=== PATIENT | male | born 1985 | race Hispanic/Latino ===

== ENCOUNTER 2017-03-14 14:02 | Emergency (ER) | payer OTHER ==
[2017-03-14 14:25] VITALS: BP 150/90; PULSE 58; RESP 18; TEMP 97.9; O2SAT 99
--- NOTE | 2017-03-14 14:43 | ED PDOC ---
Lower Extremity Pain/Injury Time Seen by Provider: 03/14/17 14:26 Chief Complaint (Nursing): Lower Extremity Problem/Injury Chief Complaint (Provider): Left foot injury History Per: Patient History/Exam Limitations: no limitations Onset/Duration Of Symptoms: Days (x1) Current Symptoms Are (Timing): Still Present Additional Complaint(s): Thanh is a 32 y/o male who presents to the ED for evaluation of a left foot injury, sustained earlier today. He states that while carrying an A/C unit , he lost his balance and dropped it onto his left great toe. Patient took Tramadol prior to arrival but this did not help the pain. PMD: None Past Medical History Reviewed: Historical Data, Nursing Documentation, Vital Signs Vital Signs: Last Vital Signs Temp 97.9 F 03/14/17 14:22 Pulse 58 L 03/14/17 14:22 Resp 18 03/14/17 14:22 BP 150/90 03/14/17 14:22 Pulse Ox 99 03/14/17 14:22 - Medical History PMH: No Chronic Diseases - Surgical History Other surgeries: Left knee surgery - Family History Family History: States: No Known Family Hx - Living Arrangements Living Arrangements: With Family - Social History Current smoker - smoking cessation education provided: No Alcohol: None Drugs: Denies - Home Medications Home Medications: Ambulatory Orders Medication Instructions Recorded Ibuprofen [Motrin] 600 mg PO Q6 PRN #15 tab 11/11/15 - Allergies Allergies/Adverse Reactions: Allergies Allergy/AdvReac Type Severity Reaction Status Date / Time No Known Allergies Allergy Verified 11/11/15 14:08 Wells Criteria for PE - Wells Criteria for Pulmonary Embolism Clinical Signs and Symptoms of DVT: No P.E is #1 Diagnosis, or Equally Likely: No Heart Rate >100: No Immobilization at least 3 days;Surgery previous 4 weeks: No Previous, objectively diagnosed PE or DVT: No Hemoptysis: No Malignancy w/treatment within 6 months, or palliative: No Total Score: 0 Review of Systems ROS Statement: Except As Marked, All Systems Reviewed And Found Negative Musculoskeletal: Positive for: Foot Pain (Left great toe injury) Neurological: Negative for: Weakness, Numbness Physical Exam - Reviewed Nursing Documentation Reviewed: Yes Vital Signs Reviewed: Yes - Physical Exam Appears: Positive for: Well, Non-toxic, No Acute Distress Head Exam: Positive for: ATRAUMATIC, NORMAL INSPECTION, NORMOCEPHALIC Skin: Positive for: Normal Color. Negative for: Rash Eye Exam: Positive for: Normal appearance Extremity: Positive for: Normal ROM (able to move all toes of left foot), Swelling (Subungual hematoma to the left great toe with swelling) Neurologic/Psych: Positive for: Alert, Oriented. Negative for: Motor/Sensory Deficits - ECG O2 Sat by Pulse Oximetry: 99 (RA) Pulse Ox Interpretation: Normal - Other Rad Left foot x-ray X-Ray: Interpreted by Me, Viewed By Me X-Ray Interpretation: no fx, no dis Medical Decision Making Medical Decision Making: Clinical Impression: Crush injury to left great toe Time: 14:33 Initial Plan: --X-Ray Left Foot --Motrin 600 mg PO Podiatry to see patient in ED. 3:45 pm: podiatry resident, Dr. Alvarez at bedside. She performed bedside trephination of affected toenail. Procedure was tolerated well by patient. Patient was instructed to follow up next week with podiatry clinic and was advised to take over the counter NSAID's for pain. Scribe Attestation: Documented by Page Winston, acting as a scribe for Darlene Peralta PA-C Provider Scribe Attestation: All medical record entries made by the Scribe were at my direction and personally dictated by me. I have reviewed the chart and agree that the record accurately reflects my personal performance of the history, physical exam, medical decision making, and the department course for this patient. I have also personally directed, reviewed, and agree with the discharge instructions and disposition. Disposition - Clinical Impression Clinical Impression: Crush injury of toe, Subungual hematoma of toenail - Patient ED Disposition Is Patient to be Admitted: No Counseled Patient/Family Regarding: Studies Performed, Diagnosis, Need For Followup - Disposition Referrals: Podiatry Clinic [Outside] Disposition: Routine/Home Disposition Time: 17:07 Condition: STABLE Additional Instructions: Ice, rest and elevate affected area. Take over the counter motrin and tylenol for pain relief. Follow up next week with podiatry clinic. Instructions: Subungual Hematoma (ED), Crush Injury (ED) Forms: [facility] (Turkmen)
--- NOTE | 2017-03-14 15:28 | RAD ---
PROCEDURE: Left Foot Radiographs. HISTORY: Trauma to great toe COMPARISON: None. FINDINGS: BONES: Bone alignment and mineralization are normal. There is no acute displaced fracture or bone destruction. JOINTS: Normal. SOFT TISSUES: Normal. OTHER FINDINGS: None. IMPRESSION: No acute fracture or dislocation.
--- NOTE | 2017-03-14 16:13 | CP.PCM.CON ---
History of Present Illness - History of Present Illness History of Present Illness: 32 year old male with no PMH presents to the ED for left great toe crush injury. Patient reports 4 hours ago, he dropped an [employer] oven on his left great toe. He reports 10/10 throbbing pain being localized to the left great toe. Pain does not radiate anywhere. He denies n/v/sob/cp/chill or f. He denies numbness or tingling. PMH: none PSH: left knee surgery with internal fixation ALL: NKDA MEDS: tramadol for the toe pain FH: none SH: reports smoking weed years ago, reports socially drinking, denies smoking or elicit drug use Past Patient History - Infectious Disease Hx of Infectious Diseases: None - Past Social History Alcohol: None Drugs: Denies - PSYCHIATRIC Hx Substance Use: No Meds Allergies/Adverse Reactions: Allergies Allergy/AdvReac Type Severity Reaction Status Date / Time No Known Allergies Allergy Verified 11/11/15 14:08 Physical Exam - Constitutional Appears: Well, Non-toxic, No Acute Distress - Extremities Exam Additional comments: Vasc: DP and PT 2/4 bilaterally, CFT<3 seconds x10 digits, temperature gradient from proximal to distal: warm to cool bilaterally, localized edema noted to the left great toe Ortho: pain with palpation to the left nail plate, no pain with 1st MPJ or IPJ ROM, MM is 5/5 in all four compartments: dorsiflexion, plantarflexion, inversion , and eversion Neuro: protective and gross sensation intact Derm: hematoma noted covering 80% of the nail plate proximally, nail plate intact 100% to nail bed, no open lesions noted, localized bruising noted to the proximal nail folds - Neurological Exam Neurological exam: Alert, Oriented x3 - Psychiatric Exam Psychiatric exam: Normal Affect, Normal Mood Results - Vital Signs Recent Vital Signs: Last Vital Signs Temp 97.9 F 03/14/17 14:22 Pulse 58 L 03/14/17 14:22 Resp 18 03/14/17 14:22 BP 150/90 03/14/17 14:22 Pulse Ox 99 03/14/17 15:46 Assessment & Plan - Assessment and Plan (Free Text) Assessment: 32 year old male with no PMH presents to the ED for left great toe crush injury with painful hematoma under nail plate. Plan: Patient was examined and evaluated in the ED Discussed the plan in detail with attending Dr. Fuller Charts and vitals reviewed- afebrile X-rays results- no acute displaced fracture or bone destruction Pain consistent with trauma and hematoma formation under nail plate A opening was made in center of the nail plate using a hand surgical cauterizer after prepping the surgical field with betadine. Patient explained the risk, benefits, alternatives, and complications for the procedure Patient verbally consented to the procedure. Surgical opening cleansed with betadine and dressed with betadine w2d, dsd, tiffany, and coban Patient tolerated the procedure well without complications. Patient states he felt instance relief. About 2 cc of blood expressed from opening. Surgical shoe dispensed. Patient may WBAT in surgical shoe. RICE protocol educated. Recs over the counter pain medication for pain Explained to keep dressing c/d/i for 2 days, may change dressing daily after that with betadine, dsd, and tiffany as demonstrated in ED. Explained signs of infection and to come back to ED if present. Will f/u in podiatry clinic in [address] Fuller Thank you for the consult.
[2017-03-14] MEDS ORDERED: Povidone Iodine Topical 10% Sol TOP ONE (16:19)
[2017-03-14] MEDS ORDERED: Povidone Iodine Topical 10% Sol ONE (16:29)
== END 2017-03-14 17:09 | disposition home or self-care (01) ==
LOC: H.ER 14:02
DX: S97.112A Crushing injury of left great toe, initial encounter (principal); W20.8XXA Other cause of strike by thrown, projected or falling object, initial encounter

== ENCOUNTER 2018-02-27 13:03 | Emergency (ER) | payer OTHER ==
[2018-02-27 13:28] VITALS: BP 115/74; PULSE 73; RESP 16; TEMP 98.3; O2SAT 99
--- NOTE | 2018-02-27 13:46 | ED PDOC ---
Lower Extremity Pain/Injury Time Seen by Provider: 02/27/18 13:28 Chief Complaint (Nursing): Lower Extremity Problem/Injury Chief Complaint (Provider): Lower Extremity Problem/Injury History Per: Patient History/Exam Limitations: no limitations Onset/Duration Of Symptoms: Days (x3 weeks) Additional Complaint(s): Patient is a 33 y/o male who presents to the ED complaining of itching and burning sensation to his feet bilaterally for the past x3 weeks. Patient states the left foot is worse than the right. Patient reports skin cracking between the toes. He denies having taken any medication for symptoms. Additionally, patient had his hand sutured x2 days ago. He states he thinks he was supposed to get a prescription for antibiotic but did not. There is no dressing on the wound; patient states he just washed it. Past Medical History Reviewed: Historical Data, Nursing Documentation, Vital Signs Vital Signs: Last Vital Signs Temp 98.3 F 02/27/18 13:23 Pulse 73 02/27/18 13:23 Resp 16 02/27/18 13:23 BP 115/74 02/27/18 13:23 Pulse Ox 99 02/27/18 13:23 - Medical History PMH: No Chronic Diseases - Surgical History Surgical History: No Surg Hx - Family History Family History: States: Unknown Family Hx - Home Medications Home Medications: Ambulatory Orders Medication Instructions Recorded Ibuprofen [Motrin] 600 mg PO Q6 PRN #15 tab 11/11/15 Clotrimazole 1% Cream [Lotrimin 1% 1 applic TOP BID #2 tube 02/27/18 CREAM] - Allergies Allergies/Adverse Reactions: Allergies Allergy/AdvReac Type Severity Reaction Status Date / Time No Known Allergies Allergy Verified 02/27/18 13:23 Review of Systems ROS Statement: Except As Marked, All Systems Reviewed And Found Negative Constitutional: Negative for: Fever Musculoskeletal: Positive for: Foot Pain (burning and itching bilaterally) Skin: Positive for: Other (skin cracking between toes) Physical Exam - Reviewed Nursing Documentation Reviewed: Yes Vital Signs Reviewed: Yes - Physical Exam Appears: Positive for: Non-toxic, No Acute Distress Head Exam: Positive for: ATRAUMATIC, NORMOCEPHALIC Skin: Positive for: Normal Color, Warm, DRY Eye Exam: Positive for: EOMI, Normal appearance, PERRL Cardiovascular/Chest: Positive for: Regular Rate, Rhythm. Negative for: Murmur, Bradycardia, Tachycardia Respiratory: Positive for: Normal Breath Sounds. Negative for: Respiratory Distress Extremity: Positive for: Other (fissure between toes, local erythema consistent with fungal infection; left thenar eminence 2 cm laceration 2 sutures intact, no drainage no erythema) Neurologic/Psych: Positive for: Alert, Oriented. Negative for: Motor/Sensory Deficits - ECG O2 Sat by Pulse Oximetry: 99 (RA) Pulse Ox Interpretation: Normal Medical Decision Making Medical Decision Making: Time: 13:28 Initial Impression: Bilateral foot pain and wound check Initial Plan: Time: 13:45 --put antibiotic bandage on. Time: 13:45 Upon provider evaluation patient is medically stable, and requires no further treatment in the ED at this time. Patient will be discharged home. Counseling was provided and all questions were answered regarding diagnosis and need for follow up with PMD/deck officer. There is agreement to discharge plan. Return if symptoms persist or worsen. Scribe Attestation: Documented by Antwan Duong, acting as a scribe for Neha Herring PA-C. Provider Scribe Attestation: All medical record entries made by the Scribe were at my direction and personally dictated by me. I have reviewed the chart and agree that the record accurately reflects my personal performance of the history, physical exam, medical decision making, and the department course for this patient. I have also personally directed, reviewed, and agree with the discharge instructions and disposition. Disposition - Clinical Impression Clinical Impression: Athlete's foot, Encounter for wound re-check - Patient ED Disposition Is Patient to be Admitted: No Counseled Patient/Family Regarding: Diagnosis, Need For Followup - Disposition Disposition: Routine/Home Disposition Time: 13:45 Condition: STABLE Prescriptions: Clotrimazole 1% Cream [Lotrimin 1% CREAM] 1 applic TOP BID #2 tube Instructions: Athlete's Foot Forms: [facility] (Trinidadian)
== END 2018-02-27 14:40 | disposition home or self-care (01) ==
LOC: H.ER 13:03
DX: B35.3 Tinea pedis (principal)

== ENCOUNTER 2018-07-25 13:19 | Emergency (ER) | payer OTHER ==
[2018-07-25 13:45] VITALS: BP 161/82; PULSE 60; RESP 16; TEMP 98.2; O2SAT 99
--- NOTE | 2018-07-25 14:24 | ED PDOC ---
HPI: Back Time Seen by Provider: 07/25/18 13:48 Chief Complaint (Nursing): Back Pain Chief Complaint (Provider): Back Pain History Per: Patient History/Exam Limitations: no limitations Onset/Duration Of Symptoms: Days (past x2 weeks) Current Symptoms Are (Timing): Still Present Additional Complaint(s): Thanh Jang is a 33 year old male with no past medical history, who presents to the emergency department complaining of lower back pain, onset x2 weeks. Patient states he does not work and is currently on disability because of screws placed in his right knee. He denies having any trauma or fall and states that it may of started due to him lifting something but is unsure. Patient states that the pain is severe and is sometimes unable to stand up. PMD: Bridger Oneil Past Medical History Reviewed: Historical Data, Nursing Documentation, Vital Signs Vital Signs: Last Vital Signs Temp 98.2 F 07/25/18 13:40 Pulse 60 07/25/18 13:40 Resp 16 07/25/18 13:40 BP 161/82 H 07/25/18 13:40 Pulse Ox 99 07/25/18 13:40 - Medical History PMH: No Chronic Diseases - Surgical History Surgical History: No Surg Hx - Family History Family History: States: Unknown Family Hx - Immunization History Hx Tetanus Toxoid Vaccination: No Hx Influenza Vaccination: No Hx Pneumococcal Vaccination: No - Home Medications Home Medications: Ambulatory Orders Medication Instructions Recorded Ibuprofen [Motrin] 600 mg PO Q6 PRN #15 tab 11/11/15 Clotrimazole 1% Cream [Lotrimin 1% 1 applic TOP BID #2 tube 02/27/18 CREAM] Cyclobenzaprine [Flexeril] 10 mg PO TID #27 tab 07/25/18 Diclofenac Potassium 50 mg PO BID #20 tablet 07/25/18 - Allergies Allergies/Adverse Reactions: Allergies Allergy/AdvReac Type Severity Reaction Status Date / Time No Known Allergies Allergy Verified 07/25/18 13:41 Review of Systems ROS Statement: Except As Marked, All Systems Reviewed And Found Negative Musculoskeletal: Positive for: Back Pain Physical Exam - Reviewed Nursing Documentation Reviewed: Yes Vital Signs Reviewed: Yes - Physical Exam Appears: Positive for: Non-toxic, No Acute Distress Head Exam: Positive for: ATRAUMATIC, NORMOCEPHALIC Back: Positive for: Muscle Spasm (left paraspinal muscle spasm L3-L5), Other (Negative rotation test Left and right; axial load test (-); forward flexion passed 90 degrees; rotation passed 45 degrees in both directions; lateral flexion passed 30 degrees in each direction ) - ECG O2 Sat by Pulse Oximetry: 99 (RA) Pulse Ox Interpretation: Normal Medical Decision Making Medical Decision Making: Time: 1414 Plan: --Tylenol 650 mg PO --Flexeril 10 mg PO --Toradol 60 mg IM --Patient does not need back x-ray at this time because it is not clinically indicated. Patient does not have vertebral tenderness, no trauma and is only experiencing muscle spasms. --The patient's back pain appears musculoskeletal in nature, increases with movement, decreases with remaining still, with normal neuro exam, intact sensation, no fever or history of IVDA to suggest spinal abscess, no rash, no UTI symptoms, appears safe and appropriate for discharge and outpatient f/u. Explained to the patient that further work up/evaluation might be needed in outpatient setting, including, but not limited to MRI, but not indicated at this time in the ED with his current clinical exam and history. Scribe Attestation: Documented by Jam Fulton, acting as a scribe for Jacob Snyder PA-C. Provider Scribe Attestation: All medical record entries made by the Scribe were at my direction and perso hawa dictated by me. I have reviewed the chart and agree that the record accurately reflects my personal performance of the history, physical exam, medical decision making, and the department course for this patient. I have also personally directed, reviewed, and agree with the discharge instructions and disposition. Disposition - Clinical Impression Clinical Impression: Back strain, Low back pain - Patient ED Disposition Is Patient to be Admitted: No Doctor Will See Patient In The: Office Counseled Patient/Family Regarding: Diagnosis, Need For Followup, Rx Given - Disposition Referrals: Bridger Oneil MD [Family Provider] - Disposition: Routine/Home Disposition Time: 15:19 Condition: STABLE Prescriptions: Cyclobenzaprine [Flexeril] 10 mg PO TID #27 tab Diclofenac Potassium 50 mg PO BID #20 tablet Instructions: Low Back Pain in Adults, Do I Need an X-ray (or Other Test) for Low Back Pain?, Exercise Band Exercises for the Back and Hips, Low Back Pain (DC), Muscle Strain (DC), Back Exercises Forms: [employer] (Turkmen)
== END 2018-07-25 15:25 | disposition home or self-care (01) ==
LOC: H.ER 13:19
DX: M54.5 Low back pain (principal)
CPT/HCPCS: 96372; 99283; J1885